=== PATIENT | male | born 2000 | race Caucasian/White ===

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

== ENCOUNTER → 2020-03-16 | Outpatient (CLI) | payer BC ==
[~2020-03-16] MED LIST: NAPROSYN500 MG PO
== END | disposition home or self-care (01) ==
LOC: COVID19 11:53
DX: Z03.818 Encounter for observation for suspected exposure to other biological agents ruled out (principal)